=== PATIENT | female | born 1955 | race Caucasian/White ===

== ENCOUNTER 2021-12-12 18:15 | Inpatient (IN) | payer MEDICAID ==
--- NOTE | 2021-12-13 08:38 | Progress Note ---
Subjective Date of service: 12/13/21 Principal diagnosis: major depressive disorder Subjective Comment: This is a 66 year old female with history of depression who presents to the ER with suicidal ideation and overdose. EMS reports that she drank a small amount of bleach and took 3-4 pills of citalopram. The patient was seen today lying in bed. The patient reports she "got into it with my nephew." Patient denies previous psychiatric diagnoses. Patient is not engaging in interview and is unab le to provide information regarding what brought her here at this time. PAST PSYCHIATRIC HISTORY: PAST MEDICAL HISTORY: Family Psychiatric History: None reported or documented SOCIAL HISTORY REVIEW OF SYSTEMS MENTAL STATUS EXAMINATION Diagnoses: Major depressive disorder Treatment Plan Start sertraline 25 mg qd and trazodone 50 mg qhs Usual Wellness Buddhism/Preservation: - Start Trazodone 50 mg po QHS & 50 mg po QHS PRN between 10 PM & 2 AM for insomnia - Start Melatonin 5 mg po QHS to promote circadian rhythm The patient agreed on the treatment plan, understood the risk, benefit, alternative treatment, potential consequence of no treatment, and gave informed consent. Estimated days: 7 Post hospital care: primary care provider, psychiatric provider Case staffed with Dr. Ross Legal Status: Voluntary Reaction to Hospitalization: Accepting Medications and Allergies Allergies Allergy/AdvReac Type Severity Reaction Status Date / Time NSAIDS (Non-Steroidal Allergy Unknown Verified 12/12/21 22:07 Anti-Inflamma tramadol Allergy Unknown Verified 12/12/21 22:07 Home Medications Medication Instructions Recorded Confirmed Last Taken Type Acetaminophen 1 cap PO BID PRN 12/13/21 12/13/21 Unknown History Albuterol Mdi (or & Nicu Only) 2 puff IH QID PRN 12/13/21 12/13/21 Unknown History [ProAir HFA Inhaler] AtorvaSTATin [Lipitor] 20 mg PO QHS 12/13/21 12/13/21 Unknown History Citalopram [celeXA] 20 mg PO QDAY 12/13/21 12/13/21 Unknown History Loratadine [Allergy] 10 mg PO DAILY 12/13/21 12/13/21 Unknown History Omeprazole 40 mg PO QAM 12/13/21 12/13/21 Unknown History Potassium Chloride [K-Dur] 10 meq PO QDAY 12/13/21 12/13/21 Unknown History hydroCHLOROthiazide 12.5 mg PO DAILY 12/13/21 12/13/21 Unknown History [Hydrochlorothiazide] lisinopriL [Lisinopril] 20 mg PO DAILY 12/13/21 12/13/21 Unknown History Active Meds: Active Medications Trazodone HCl (Trazodone 50 Mg Tab) 50 mg PO QHS [facility] Results - Results Labs/Vitals: Last Vital Signs Temp 98.9 F 12/12/21 22:07 Pulse 71 12/12/21 22:07 Resp 17 12/12/21 22:07 BP 117/71 12/12/21 22:07 Pulse Ox 97 12/12/21 22:07
--- NOTE | 2021-12-13 09:04 | Consultation ---
History of Present Illness - Reason for Consult Consult date: 12/13/21 Medical consult /medical management Requesting physician: LOIS THOMAS - History of Present Illness 66-year-old female patient was admitted to [facility] psych unit for suicidal ideation and consuming a sip of bleach and 3 to 4 unknown tablets with intention to harm herself as suicidal attempt Patient has history of hypertension dyslipidemia, medical consult was requested for medical management. On examination patient is severely depressed, minimally communicative Sleeping in her room, easily awakens No new overnight events reported by the nursing When asked how she is doing patient response by saying ''well'' Past History Past Medical History: hypertension, hyperlipidemia, other (Bipolar, depression) Past Surgical History: No surgical history Social history: smoking, alcohol abuse, full code Family history: no significant family history Medications and Allergies Allergies Allergy/AdvReac Type Severity Reaction Status Date / Time NSAIDS (Non-Steroidal Allergy Unknown Verified 12/12/21 22:07 Anti-Inflamma tramadol Allergy Unknown Verified 12/12/21 22:07 Home Medications Medication Instructions Recorded Confirmed Last Taken Type Acetaminophen 1 cap PO BID PRN 12/13/21 12/13/21 Unknown History Albuterol Mdi (or & Nicu Only) 2 puff IH QID PRN 12/13/21 12/13/21 Unknown His tory [ProAir HFA Inhaler] AtorvaSTATin [Lipitor] 20 mg PO QHS 12/13/21 12/13/21 Unknown History Citalopram [celeXA] 20 mg PO QDAY 12/13/21 12/13/21 Unknown History Loratadine [Allergy] 10 mg PO DAILY 12/13/21 12/13/21 Unknown History Omeprazole 40 mg PO QAM 12/13/21 12/13/21 Unknown History Potassium Chloride [K-Dur] 10 meq PO QDAY 12/13/21 12/13/21 Unknown History hydroCHLOROthiazide 12.5 mg PO DAILY 12/13/21 12/13/21 Unknown History [Hydrochlorothiazide] lisinopriL [Lisinopril] 20 mg PO DAILY 12/13/21 12/13/21 Unknown History Active Meds: Active Medications Trazodone HCl (Trazodone 50 Mg Tab) 50 mg PO QHS [facility] Review of Systems Constitutional: weakness, no weight loss, no weight gain, no fever, no chills Ears, nose, mouth and throat: no nasal congestion, no nasal discharge Cardiovascular: no chest pain, no orthopnea, no palpitations Respiratory: no cough, no shortness of breath Gastrointestinal: no abdominal pain, no nausea, no vomiting Genitourinary Female: no pelvic pain, no flank pain, no dysuria Musculoskeletal: no myalgias, no arthritis Integumentary: no rash, no lesions Psychiatric: anxiety, depression Endocrine: no cold intolerance, no heat intolerance Hematologic/Lymphatic: no easy bruising, no easy bleeding Allergic/Immunologic: no urticaria, no allergic rhinitis Exam - Constitutional Vitals: Temp Pulse Resp BP Pulse Ox 98.9 F 71 17 117/71 97 12/12/21 22:07 12/12/21 22:07 12/12/21 22:07 12/12/21 22:07 12/12/21 22:07 General appearance: Present: no acute distress, obese, other (Minimally communicative, depressed) - EENT Eyes: Present: PERRL, EOM intact - Neck Neck: Present: supple, normal ROM - Respiratory Respiratory effort: normal Respiratory: bilateral: diminished, negative: rales, rhonchi, wheezing - Cardiovascular Rhythm: regular Heart Sounds: Present: S1 & S2 - Extremities Extremities: no ischemia, No edema - Abdominal General gastrointestinal: Present: soft, non-tender, non-distended, normal bowel sounds - Integumentary Integumentary: Present: clear, warm - Musculoskeletal Musculoskeletal: strength equal bilaterally - Psychiatric Psychiatric: appropriate mood/affect, cooperative - Neurologic Neurologic: CNII-XII intact, moves all extremities Results - Labs CBC & Chem 7: 12/13/21 07:37 12/13/21 07:37 Assessment and Plan -- Hypertension; Moderate control, resume home antihypertensive lisinopril As needed hydralazine, closely monitor -- Dyslipidemia; Resume lipid-lowering medication statin Low-cholesterol diet -- Major depression; Management per psychiatric team Denied suicidal thoughts or ideation today --Suicidal attempt; Intentional consumption of bleach And unknown medications Suicidal watch/1013 status --Leukopenia; Unknown etiology Patient does not have any immunosuppressive illnesses Monitor closely --Ongoing tobacco use; Smoking cessation counseling Advised nicotine patch as needed --Obesity; BMI 33.3 Dietary modification, exercise as tolerated and weight reduction When medically stable. --Full CODE STATUS Closely monitor the patient and adjust the management as needed Plan of care reviewed with the patient and her nurse. Thank you for this consultation We will follow the patient along with you Call us with questions
[2021-12-13] MEDS ORDERED: ALBUTEROL 8.5 GM MDI INHALATION IH PRN (09:59)
[2021-12-13] MEDS: LISINOPRIL 20 MG TAB PO SCH (11:00)
[2021-12-13] MEDS ORDERED: ALBUTEROL 2.5 MG/3 ML NEBU IH PRN (11:00)
[2021-12-13] MEDS: SERTRALINE 25 MG TAB PO SCH (11:11)
[2021-12-13 15:59] LABS: Basophils % (Auto) 1.6 % (0.0-1.8); Eosinophils % (Auto) 1.1 % (0.0-4.3); Hematocrit 34.8 % (30.3-42.9); Lymphocytes # (Auto) 1.2 K/mm3 (1.2-5.4); Lymphocytes % (Auto) 40.4 % (13.4-35.0); Mean Corpuscular HGB Conc 32 % (30-34); Mean Corpuscular Volume 96 fl (79-97); Monocytes # (Auto) 0.3 K/mm3 (0.0-0.8); Monocytes % (Auto) 8.7 % (0.0-7.3); Platelet Count 200 K/mm3 (140-440); Red Blood Count 3.63 M/mm3 (3.65-5.03); Red Cell Distribution Width 14.7 % (13.2-15.2)
[2021-12-13 16:23] LABS: Alanine Aminotransferase 15 units/L (7-56); Albumin 3.6 g/dL (3.9-5); BUN/Creatinine Ratio 15; Blood Urea Nitrogen 12 mg/dL (7-17); Calcium 8.6 mg/dL (8.4-10.2); Chol/HDL Ratio 3.05 %; HDL Cholesterol 39 mg/dL (40-59); Hemolysis Index 5; LDL Cholesterol,Direct 64 mg/dL (50-130)
[2021-12-13] MEDS: traZODone 50 MG TAB PO SCH (22:10)
--- NOTE | 2021-12-14 07:55 | Progress Note ---
Assessment and Plan Assessment and plan: 66-year-old female patient was admitted to [facility] psych unit for suicidal ideation and consuming a sip of bleach and 3 to 4 unknown tablets with intention to harm herself as suicidal attempt Patient has history of hypertension dyslipidemia, medical consult was requested for medical management -- Dyslipidemia; -- Major depression --Suicidal attempt; -- Bradycardia asymptomatic -- Leukopenia plan Cont supportive care monitor for symptoms associated with bradycardia Notify MD if any fever Continue Lisinopril other managment per psych team History Interval history: Patient seen and examined resting comfortably no new complaints this morning. Hospitalist Physical - Physical exam Narrative exam: VITAL SIGNS: Reviewed. GENERAL: The patient appears normally developed, Vital signs as documented. HEAD: No signs of head trauma. EYES: Pupils are equal. Extraocular motions intact. EARS: Hearing grossly intact. MOUTH: Oropharynx is normal. NECK: No adenopathy, no JVD. CHEST: Chest with clear breath sounds bilaterally. No wheezes, rales, or rhonchi. CARDIAC: Regular rate and rhythm. S1 and S2, without murmurs, gallops, or rubs. VASCULAR: No Edema. Peripheral pulses normal and equal in all extremities. ABDOMEN: Soft, non tender and non distended. No rebound or guarding, and no masses palpated. Bowel Sounds normal. MUSCULOSKELETAL: Good range of motion of all major joints. Extremities without clubbing, cyanosis or edema. NEUROLOGIC EXAM: Alert and oriented x 3 No focal sensory or strength deficits. Speech normal. Follows commands. PSYCHIATRIC: Mood normal. SKIN: detail exam as documented in skin assessment - Constitutional Vitals: Temp Pulse Resp BP Pulse Ox 98.5 F 72 18 147/74 99 12/13/21 22:00 12/13/21 22:00 12/13/21 22:00 12/13/21 22:00 12/13/21 22:00 Results - Labs CBC & Chem 7: 12/13/21 07:37 12/13/21 07:37 Labs: Laboratory Last Values WBC 2.9 K/mm3 (4.5-11.0) L 12/13/21 07:37 RBC 3.63 M/mm3 (3.65-5.03) L 12/13/21 07:37 Hgb 11.0 gm/dl (10.1-14.3) 12/13/21 07:37 Hct 34.8 % (30.3-42.9) 12/13/21 07:37 MCV 96 fl (79-97) 12/13/21 07:37 MCH 30 pg (28-32) 12/13/21 07:37 MCHC 32 % (30-34) 12/13/21 07:37 RDW 14.7 % (13.2-15.2) 12/13/21 07:37 Plt Count 200 K/mm3 (140-440) 12/13/21 07:37 Lymph % (Auto) 40.4 % (13.4-35.0) H 12/13/21 07:37 [place] % (Auto) 8.7 % (0.0-7.3) H 12/13/21 07:37 Eos % (Auto) 1.1 % (0.0-4.3) 12/13/21 07:37 Baso % (Auto) 1.6 % (0.0-1.8) 12/13/21 07:37 Lymph # (Auto) 1.2 K/mm3 (1.2-5.4) 12/13/21 07:37 [place] # (Auto) 0.3 K/mm3 (0.0-0.8) 12/13/21 07:37 Eos # (Auto) 0.0 K/mm3 (0.0-0.4) 12/13/21 07:37 Baso # (Auto) 0.0 K/mm3 (0.0-0.1) 12/13/21 07:37 Seg Neutrophils % 48.2 % (40.0-70.0) 12/13/21 07:37 Seg Neutrophils # 1.4 K/mm3 (1.8-7.7) L 12/13/21 07:37 Sodium 145 mmol/L (137-145) 12/13/21 07:37 Potassium 4.4 mmol/L (3.6-5.0) 12/13/21 07:37 Chloride 108.5 mmol/L (98-107) H 12/13/21 07:37 Carbon Dioxide 25 mmol/L (22-30) 12/13/21 07:37 Anion Gap 16 mmol/L 12/13/21 07:37 BUN 12 mg/dL (7-17) 12/13/21 07:37 Creatinine 0.8 mg/dL (0.6-1.2) 12/13/21 07:37 Estimated GFR > 60 ml/min 12/13/21 07:37 BUN/Creatinine Ratio 15 % 12/13/21 07:37 Glucose 77 mg/dL (65-100) 12/13/21 07:37 Hemoglobin A1c 5.2 % (4-6) 12/13/21 07:37 Calcium 8.6 mg/dL (8.4-10.2) 12/13/21 07:37 Total Bilirubin 0.70 mg/dL (0.1-1.2) 12/13/21 07:37 AST 21 units/L (5-40) 12/13/21 07:37 ALT 15 units/L (7-56) 12/13/21 07:37 Alkaline Phosphatase 88 units/L (35-129) 12/13/21 07:37 Total Protein 5.8 g/dL (6.3-8.2) L 12/13/21 07:37 Albumin 3.6 g/dL (3.9-5) L 12/13/21 07:37 Albumin/Globulin Ratio 1.6 % 12/13/21 07:37 Triglycerides 76 mg/dL (2-149) 12/13/21 07:37 Cholesterol 119 mg/dL (50-199) 12/13/21 07:37 LDL Cholesterol Direct 64 mg/dL (50-130) 12/13/21 07:37 HDL Cholesterol 39 mg/dL (40-59) L 12/13/21 07:37 Cholesterol/HDL Ratio 3.05 % 12/13/21 07:37 TSH 0.425 mlU/mL (0.270-4.200) 12/13/21 07:37 Demarco/IV: Voiding Method Toilet Active Medications - Current Medications Current Medications: Generic Name Dose Route Start Last Admin Trade Name Freq PRN Reason Stop Dose Admin Albuterol 2.5 mg 12/13/21 11:00 Albuterol 2.5 Mg/3 Ml Nebu IH Q4HR PRN Shortness Of Breath Lisinopril 20 mg 12/13/21 10:30 12/13/21 11:00 Lisinopril 20 Mg Tab PO Not Given DAILY [facility] Sertraline HCl 25 mg 12/13/21 10:30 12/13/21 11:11 Sertraline 25 Mg Tab PO 25 mg QDAY [facility] Administration Trazodone HCl 50 mg 12/13/21 22:00 12/13/21 22:10 Trazodone 50 Mg Tab PO 50 mg QHS [facility] Administration
--- NOTE | 2021-12-14 09:04 | Progress Note ---
Subjective Date of service: 12/14/21 Principal diagnosis: major depressive disorder Subjective Comment: 12/14:The patient was seen resting in bed. She is calm, alert and oriented to self. The patient is not engaging at this time. Per nurse " Pt received in the hallway observed tearful and sad. Reports she has been trying to get her daughter on phone w/o success. Courtesy Driver assisted with the phone call but no answer. Message left and pt given verbal support and assured we will try again later." REVIEW OF SYSTEMS MENTAL STATUS EXAMINATION Diagnoses: Major depressive disorder Treatment Plan Start sertraline 25 mg qd and trazodone 50 mg qhs Usual Wellness Episcopalian/Preservation: - Start Trazodone 50 mg po QHS & 50 mg po QHS PRN between 10 PM & 2 AM for inso mnia - Start Melatonin 5 mg po QHS to promote circadian rhythm The patient agreed on the treatment plan, understood the risk, benefit, alternative treatment, potential consequence of no treatment, and gave informed consent. Estimated days: 7 Post hospital care: primary care provider, psychiatric provider Case staffed with Dr. Ross Legal Status: Voluntary Reaction to Hospitalization: Accepting Medications and Allergies Medications and Allergies Allergies Allergy/AdvReac Type Severity Reaction Status Date / Time NSAIDS (Non-Steroidal Allergy Unknown Verified 12/12/21 22:07 Anti-Inflamma tramadol Allergy Unknown Verified 12/12/21 22:07 Home Medications Medication Instructions Recorded Confirmed Last Taken Type Acetaminophen 1 cap PO BID PRN 12/13/21 12/13/21 Unknown History Albuterol Mdi (or & Nicu Only) 2 puff IH QID PRN 12/13/21 12/13/21 Unknown History [ProAir HFA Inhaler] AtorvaSTATin [Lipitor] 20 mg PO QHS 12/13/21 12/13/21 Unknown History Citalopram [celeXA] 20 mg PO QDAY 12/13/21 12/13/21 Unknown History Loratadine [Allergy] 10 mg PO DAILY 12/13/21 12/13/21 Unknown History Omeprazole 40 mg PO QAM 12/13/21 12/13/21 Unknown History Potassium Chloride [K-Dur] 10 meq PO QDAY 12/13/21 12/13/21 Unknown History hydroCHLOROthiazide 12.5 mg PO DAILY 12/13/21 12/13/21 Unknown History [Hydrochlorothiazide] lisinopriL [Lisinopril] 20 mg PO DAILY 12/13/21 12/13/21 Unknown History Active Meds: Active Medications Albuterol (Albuterol 2.5 Mg/3 Ml Nebu) 2.5 mg IH Q4HR PRN PRN Reason: Shortness Of Breath Lisinopril (Lisinopril 20 Mg Tab) 20 mg PO DAILY [facility] Last Admin: 12/13/21 11:00 Dose: Not Given Sertraline HCl (Sertraline 25 Mg Tab) 25 mg PO QDAY [facility] Last Admin: 12/13/21 11:11 Dose: 25 mg Trazodone HCl (Trazodone 50 Mg Tab) 50 mg PO QHS [facility] Last Admin: 12/13/21 22:10 Dose: 50 mg Results - Results Labs/Vitals: Laboratory Last Values WBC 2.9 K/mm3 (4.5-11.0) L 12/13/21 07:37 RBC 3.63 M/mm3 (3.65-5.03) L 12/13/21 07:37 Hgb 11.0 gm/dl (10.1-14.3) 12/13/21 07:37 Hct 34.8 % (30.3-42.9) 12/13/21 07:37 MCV 96 fl (79-97) 12/13/21 07:37 MCH 30 pg (28-32) 12/13/21 07:37 MCHC 32 % (30-34) 12/13/21 07:37 RDW 14.7 % (13.2-15.2) 12/13/21 07:37 Plt Count 200 K/mm3 (140-440) 12/13/21 07:37 Lymph % (Auto) 40.4 % (13.4-35.0) H 12/13/21 07:37 [place] % (Auto) 8.7 % (0.0-7.3) H 12/13/21 07:37 Eos % (Auto) 1.1 % (0.0-4.3) 12/13/21 07:37 Baso % (Auto) 1.6 % (0.0-1.8) 12/13/21 07:37 Lymph # (Auto) 1.2 K/mm3 (1.2-5.4) 12/13/21 07:37 [place] # (Auto) 0.3 K/mm3 (0.0-0.8) 12/13/21 07:37 Eos # (Auto) 0.0 K/mm3 (0.0-0.4) 12/13/21 07:37 Baso # (Auto) 0.0 K/mm3 (0.0-0.1) 12/13/21 07:37 Seg Neutrophils % 48.2 % (40.0-70.0) 12/13/21 07:37 Seg Neutrophils # 1.4 K/mm3 (1.8-7.7) L 12/13/21 07:37 Sodium 145 mmol/L (137-145) 12/13/21 07:37 Potassium 4.4 mmol/L (3.6-5.0) 12/13/21 07:37 Chloride 108.5 mmol/L (98-107) H 12/13/21 07:37 Carbon Dioxide 25 mmol/L (22-30) 12/13/21 07:37 Anion Gap 16 mmol/L 12/13/21 07:37 BUN 12 mg/dL (7-17) 12/13/21 07:37 Creatinine 0.8 mg/dL (0.6-1.2) 12/13/21 07:37 Estimated GFR > 60 ml/min 12/13/21 07:37 BUN/Creatinine Ratio 15 % 12/13/21 07:37 Glucose 77 mg/dL (65-100) 12/13/21 07:37 Hemoglobin A1c 5.2 % (4-6) 12/13/21 07:37 Calcium 8.6 mg/dL (8.4-10.2) 12/13/21 07:37 Total Bilirubin 0.70 mg/dL (0.1-1.2) 12/13/21 07:37 AST 21 units/L (5-40) 12/13/21 07:37 ALT 15 units/L (7-56) 12/13/21 07:37 Alkaline Phosphatase 88 units/L (35-129) 12/13/21 07:37 Total Protein 5.8 g/dL (6.3-8.2) L 12/13/21 07:37 Albumin 3.6 g/dL (3.9-5) L 12/13/21 07:37 Albumin/Globulin Ratio 1.6 % 12/13/21 07:37 Triglycerides 76 mg/dL (2-149) 12/13/21 07:37 Cholesterol 119 mg/dL (50-199) 12/13/21 07:37 LDL Cholesterol Direct 64 mg/dL (50-130) 12/13/21 07:37 HDL Cholesterol 39 mg/dL (40-59) L 12/13/21 07:37 Cholesterol/HDL Ratio 3.05 % 12/13/21 07:37 TSH 0.425 mlU/mL (0.270-4.200) 12/13/21 07:37 Last Vital Signs Temp 98.5 F 12/13/21 22:00 Pulse 72 12/13/21 22:00 Resp 18 12/13/21 22:00 BP 147/74 12/13/21 22:00 Pulse Ox 99 12/13/21 22:00
[2021-12-14] MEDS: LISINOPRIL 20 MG TAB PO SCH (10:06)
[2021-12-14] MEDS: SERTRALINE 25 MG TAB PO SCH (10:07)
[2021-12-14] MEDS: ACETAMINOPHEN 325 MG TAB PO PRN (18:48)
[2021-12-14] MEDS: traZODone 50 MG TAB PO SCH (21:20)
--- NOTE | 2021-12-15 09:00 | Progress Note ---
Subjective Date of service: 12/15/21 Principal diagnosis: major depressive disorder Subjective Comment: 12/15:The patient was seen in her room today. She reports that " I tried to kill myself because I didn't have any where to stay." She continues to endorse suicidal ideation and auditory hallucination " voices telling me to kill myself." She also reports having tactile hallucinations " bugs crawling on my face." 12/14:The patient was seen resting in bed. She is calm, alert and oriented to self. The patient is not engaging at this time. Per nurse " Pt received in the hallway observed tearful and sad. Reports she has been trying to get her daughter on phone w/o success. Take Away Man assisted with the phone call but no answer. Message left and pt given verbal support and assured we will try again later." REVIEW OF SYSTEMS Constitutional: Negative for weight loss ENT: Negative for stridor Respiratory: Negative for cough or hemoptysis All other systems reviewed and are negative MENTAL STATUS EXAMINATION General Appearance and Behavior: Age appropriate, wearing appropriate clothes, cooperative, polite with questioning, good eye contact Cooperation: cooperative Psychomotor Behavior: Psychomotor normal Mood: Calm Affect and affective range: congruent with stated affect Thought Process: Goal directed Thought Content: suicidal Speech: Normal volume, Regular rate and rhythm Suicidal Ideation: Yes Homicidal Ideation: Denies Hallucination: Auditory. tactile Delusions: Denies Impulse Control: Limited Insight and Judgment: Limited Memory: Intact Attention:attentive Orientation: Alert and oriented Diagnoses: Major depressive disorder Treatment Plan Start sertraline 25 mg qd and trazodone 50 mg qhs Usual Wellness Sikhism/Preservation: - Start Trazodone 50 mg po QHS & 50 mg po QHS PRN between 10 PM & 2 AM for insomnia - Start Melatonin 5 mg po QHS to promote circadian rhythm The patient agreed on the treatment plan, understood the risk, benefit, alternative treatment, potential consequence of no treatment, and gave informed consent. Estimated days: 7 Post hospital care: primary care provider, psychiatric provider Case staffed with Dr. Ross Legal Status: Voluntary Reaction to Hospitalization: Accepting Medications and Allergies Medications and Allergies Allergies Allergy/AdvReac Type Severity Reaction Status Date / Time NSAIDS (Non-Steroidal Allergy Unknown Verified 12/12/21 22:07 Anti-Inflamma tramadol Allergy Unknown Verified 12/12/21 22:07 Home Medications Medication Instructions Recorded Confirmed Last Taken Type Acetaminophen 1 cap PO BID PRN 12/13/21 12/13/21 Unknown History Albuterol Mdi (or & Nicu Only) 2 puff IH QID PRN 12/13/21 12/13/21 Unknown History [ProAir HFA Inhaler] AtorvaSTATin [Lipitor] 20 mg PO QHS 12/13/21 12/13/21 Unknown History Citalopram [celeXA] 20 mg PO QDAY 12/13/21 12/13/21 Unknown History Loratadine [Allergy] 10 mg PO DAILY 12/13/21 12/13/21 Unknown History Omeprazole 40 mg PO QAM 12/13/21 12/13/21 Unknown History Potassium Chloride [K-Dur] 10 meq PO QDAY 12/13/21 12/13/21 Unknown History hydroCHLOROthiazide 12.5 mg PO DAILY 12/13/21 12/13/21 Unknown History [Hydrochlorothiazide] lisinopriL [Lisinopril] 20 mg PO DAILY 12/13/21 12/13/21 Unknown History Active Meds: Active Medications Acetaminophen (Acetaminophen 325 Mg Tab) 650 mg PO Q6H PRN PRN Reason: Pain, Mild (1-3) Last Admin: 12/14/21 18:48 Dose: 650 mg Albuterol (Albuterol 2.5 Mg/3 Ml Nebu) 2.5 mg IH Q4HR PRN PRN Reason: Shortness Of Breath Lisinopril (Lisinopril 20 Mg Tab) 20 mg PO DAILY [facility] Last Admin: 12/14/21 10:06 Dose: Not Given Sertraline HCl (Sertraline 25 Mg Tab) 25 mg PO QDAY [facility] Last Admin: 12/14/21 10:07 Dose: 25 mg Trazodone HCl (Trazodone 50 Mg Tab) 50 mg PO QHS [facility] Last Admin: 12/14/21 21:20 Dose: 50 mg Results - Results Labs/Vitals: Laboratory Last Values WBC 2.9 K/mm3 (4.5-11.0) L 12/13/21 07:37 RBC 3.63 M/mm3 (3.65-5.03) L 12/13/21 07:37 Hgb 11.0 gm/dl (10.1-14.3) 12/13/21 07:37 Hct 34.8 % (30.3-42.9) 12/13/21 07:37 MCV 96 fl (79-97) 12/13/21 07:37 MCH 30 pg (28-32) 12/13/21 07:37 MCHC 32 % (30-34) 12/13/21 07:37 RDW 14.7 % (13.2-15.2) 12/13/21 07:37 Plt Count 200 K/mm3 (140-440) 12/13/21 07:37 Lymph % (Auto) 40.4 % (13.4-35.0) H 12/13/21 07:37 [place] % (Auto) 8.7 % (0.0-7.3) H 12/13/21 07:37 Eos % (Auto) 1.1 % (0.0-4.3) 12/13/21 07:37 Baso % (Auto) 1.6 % (0.0-1.8) 12/13/21 07:37 Lymph # (Auto) 1.2 K/mm3 (1.2-5.4) 12/13/21 07:37 [place] # (Auto) 0.3 K/mm3 (0.0-0.8) 12/13/21 07:37 Eos # (Auto) 0.0 K/mm3 (0.0-0.4) 12/13/21 07:37 Baso # (Auto) 0.0 K/mm3 (0.0-0.1) 12/13/21 07:37 Seg Neutrophils % 48.2 % (40.0-70.0) 12/13/21 07:37 Seg Neutrophils # 1.4 K/mm3 (1.8-7.7) L 12/13/21 07:37 Sodium 145 mmol/L (137-145) 12/13/21 07:37 Potassium 4.4 mmol/L (3.6-5.0) 12/13/21 07:37 Chloride 108.5 mmol/L (98-107) H 12/13/21 07:37 Carbon Dioxide 25 mmol/L (22-30) 12/13/21 07:37 Anion Gap 16 mmol/L 12/13/21 07:37 BUN 12 mg/dL (7-17) 12/13/21 07:37 Creatinine 0.8 mg/dL (0.6-1.2) 12/13/21 07:37 Estimated GFR > 60 ml/min 12/13/21 07:37 BUN/Creatinine Ratio 15 % 12/13/21 07:37 Glucose 77 mg/dL (65-100) 12/13/21 07:37 Hemoglobin A1c 5.2 % (4-6) 12/13/21 07:37 Calcium 8.6 mg/dL (8.4-10.2) 12/13/21 07:37 Total Bilirubin 0.70 mg/dL (0.1-1.2) 12/13/21 07:37 AST 21 units/L (5-40) 12/13/21 07:37 ALT 15 units/L (7-56) 12/13/21 07:37 Alkaline Phosphatase 88 units/L (35-129) 12/13/21 07:37 Total Protein 5.8 g/dL (6.3-8.2) L 12/13/21 07:37 Albumin 3.6 g/dL (3.9-5) L 12/13/21 07:37 Albumin/Globulin Ratio 1.6 % 12/13/21 07:37 Triglycerides 76 mg/dL (2-149) 12/13/21 07:37 Cholesterol 119 mg/dL (50-199) 12/13/21 07:37 LDL Cholesterol Direct 64 mg/dL (50-130) 12/13/21 07:37 HDL Cholesterol 39 mg/dL (40-59) L 12/13/21 07:37 Cholesterol/HDL Ratio 3.05 % 12/13/21 07:37 TSH 0.425 mlU/mL (0.270-4.200) 12/13/21 07:37 Last Vital Signs Temp 98.2 F 12/14/21 22:00 Pulse 77 12/14/21 22:00 Resp 18 12/14/21 22:00 BP 125/75 12/14/21 22:00 Pulse Ox 96 12/14/21 22:00
[2021-12-15] MEDS: LISINOPRIL 20 MG TAB PO SCH (09:18)
[2021-12-15] MEDS: SERTRALINE 25 MG TAB PO SCH (09:18)
[2021-12-15] MEDS: ACETAMINOPHEN 325 MG TAB PO PRN (10:49)
--- NOTE | 2021-12-15 11:08 | Progress Note ---
Assessment and Plan Assessment and plan: 66-year-old female patient was admitted to [facility] psych unit for suicidal ideation and consuming a sip of bleach and 3 to 4 unknown tablets with intention to harm herself as suicidal attempt Patient has history of hypertension dyslipidemia, medical consult was requested for medical management. -- Dyslipidemia; -- Major depression -- Suicidal attempt; -- Bradycardia asymptomatic -- Leukopenia plan Cont supportive care, No new complaints monitor for symptoms associated with Bradycardia Notify MD if any fever Continue Lisinopril other managment per psych team History Interval history: Patient seen and examined resting comfortably no new complaints this morning. Hospitalist Physical - Physical exam Narrative exam: VITAL SIGNS: Reviewed. GENERAL: The patient appears normally developed, Vital signs as documented. HEAD: No signs of head trauma. EYES: Pupils are equal. Extraocular motions intact. EARS: Hearing grossly intact. MOUTH: Oropharynx is normal. NECK: No adenopathy, no JVD. CHEST: Chest with clear breath sounds bilaterally. No wheezes, rales, or rhonchi. CARDIAC: Regular rate and rhythm. S1 and S2, without murmurs, gallops, or rubs. VASCULAR: No Edema. Peripheral pulses normal and equal in all extremities. ABDOMEN: Soft, non tender and non distended. No rebound or guarding, and no masses palpated. Bowel Sounds normal. MUSCULOSKELETAL: Good range of motion of all major joints. Extremities without clubbing, cyanosis or edema. NEUROLOGIC EXAM: Alert and oriented x 3 No focal sensory or strength deficits. Speech normal. Follows commands. PSYCHIATRIC: Mood normal. SKIN: detail exam as documented in skin assessment - Constitutional Vitals: Temp Pulse Resp BP Pulse Ox 98.2 F 68 18 121/70 96 12/14/21 22:00 12/15/21 09:18 12/14/21 22:00 12/15/21 09:18 12/14/21 22:00 General appearance: Present: no acute distress, obese, other (Minimally communicative, depressed) Results - Labs CBC & Chem 7: 12/13/21 07:37 12/13/21 07:37 Labs: Laboratory Last Values WBC 2.9 K/mm3 (4.5-11.0) L 12/13/21 07:37 RBC 3.63 M/mm3 (3.65-5.03) L 12/13/21 07:37 Hgb 11.0 gm/dl (10.1-14.3) 12/13/21 07:37 Hct 34.8 % (30.3-42.9) 12/13/21 07:37 MCV 96 fl (79-97) 12/13/21 07:37 MCH 30 pg (28-32) 12/13/21 07:37 MCHC 32 % (30-34) 12/13/21 07:37 RDW 14.7 % (13.2-15.2) 12/13/21 07:37 Plt Count 200 K/mm3 (140-440) 12/13/21 07:37 Lymph % (Auto) 40.4 % (13.4-35.0) H 12/13/21 07:37 [place] % (Auto) 8.7 % (0.0-7.3) H 12/13/21 07:37 Eos % (Auto) 1.1 % (0.0-4.3) 12/13/21 07:37 Baso % (Auto) 1.6 % (0.0-1.8) 12/13/21 07:37 Lymph # (Auto) 1.2 K/mm3 (1.2-5.4) 12/13/21 07:37 [place] # (Auto) 0.3 K/mm3 (0.0-0.8) 12/13/21 07:37 Eos # (Auto) 0.0 K/mm3 (0.0-0.4) 12/13/21 07:37 Baso # (Auto) 0.0 K/mm3 (0.0-0.1) 12/13/21 07:37 Seg Neutrophils % 48.2 % (40.0-70.0) 12/13/21 07:37 Seg Neutrophils # 1.4 K/mm3 (1.8-7.7) L 12/13/21 07:37 Sodium 145 mmol/L (137-145) 12/13/21 07:37 Potassium 4.4 mmol/L (3.6-5.0) 12/13/21 07:37 Chloride 108.5 mmol/L (98-107) H 12/13/21 07:37 Carbon Dioxide 25 mmol/L (22-30) 12/13/21 07:37 Anion Gap 16 mmol/L 12/13/21 07:37 BUN 12 mg/dL (7-17) 12/13/21 07:37 Creatinine 0.8 mg/dL (0.6-1.2) 12/13/21 07:37 Estimated GFR > 60 ml/min 12/13/21 07:37 BUN/Creatinine Ratio 15 % 12/13/21 07:37 Glucose 77 mg/dL (65-100) 12/13/21 07:37 Hemoglobin A1c 5.2 % (4-6) 12/13/21 07:37 Calcium 8.6 mg/dL (8.4-10.2) 12/13/21 07:37 Total Bilirubin 0.70 mg/dL (0.1-1.2) 12/13/21 07:37 AST 21 units/L (5-40) 12/13/21 07:37 ALT 15 units/L (7-56) 12/13/21 07:37 Alkaline Phosphatase 88 units/L (35-129) 12/13/21 07:37 Total Protein 5.8 g/dL (6.3-8.2) L 12/13/21 07:37 Albumin 3.6 g/dL (3.9-5) L 12/13/21 07:37 Albumin/Globulin Ratio 1.6 % 12/13/21 07:37 Triglycerides 76 mg/dL (2-149) 12/13/21 07:37 Cholesterol 119 mg/dL (50-199) 12/13/21 07:37 LDL Cholesterol Direct 64 mg/dL (50-130) 12/13/21 07:37 HDL Cholesterol 39 mg/dL (40-59) L 12/13/21 07:37 Cholesterol/HDL Ratio 3.05 % 12/13/21 07:37 TSH 0.425 mlU/mL (0.270-4.200) 12/13/21 07:37 Demarco/IV: Voiding Method Toilet Active Medications - Current Medications Current Medications: Generic Name Dose Route Start Last Admin Trade Name Freq PRN Reason Stop Dose Admin Acetaminophen 650 mg 12/14/21 18:22 12/15/21 10:49 Acetaminophen 325 Mg Tab PO 650 mg Q6H PRN Administration Pain, Mild (1-3) Albuterol 2.5 mg 12/13/21 11:00 Albuterol 2.5 Mg/3 Ml Nebu IH Q4HR PRN Shortness Of Breath Lisinopril 20 mg 12/13/21 10:30 12/15/21 09:18 Lisinopril 20 Mg Tab PO 20 mg DAILY CHENCHO Administration Sertraline HCl 25 mg 12/13/21 10:30 12/15/21 09:18 Sertraline 25 Mg Tab PO 25 mg QDAY CHENCHO Administration Trazodone HCl 50 mg 12/13/21 22:00 12/14/21 21:20 Trazodone 50 Mg Tab PO 50 mg QHS CHENCHO Administration
[2021-12-15] MEDS: traZODone 50 MG TAB PO SCH (21:07)
[2021-12-16] MEDS: SERTRALINE 25 MG TAB PO SCH (09:38)
[2021-12-16] MEDS: LISINOPRIL 20 MG TAB PO SCH (09:38)
--- NOTE | 2021-12-16 12:04 | Progress Note ---
Subjective Date of service: 12/16/21 Principal diagnosis: major depressive disorder Subjective Comment: The patient was seen today. She says she is tired. She says Trazodone makes her sick and she cannot take it. The patient still endorses SI with no plan. She says "I think I need to stay here a few more days." She denies hallucinations of any kind. REVIEW OF SYSTEMS Constitutional: Negative for weight loss ENT: Negative for stridor Respiratory: Negative for cough or hemoptysis All other systems reviewed and are negative MENTAL STATUS EXAMINATION General Appearance and Behavior: Age appropriate, wearing appropriate clothes, cooperative, polite with questioning, good eye contact Cooperation: cooperative Psychomotor Behavior: Psychomotor normal Mood: Calm Affect and affective range: congruent with stated affect Thought Process: Goal directed Thought Content: suicidal Speech: Normal volume, Regular rate and rhythm Suicidal Ideation: Yes Homicidal Ideation: Denies Hallucination: Auditory. tactile Delusions: Denies Impulse Control: Limited Insight and Judgment: Limited Memory: Intact Attention:attentive Orientation: Alert and oriented Diagnoses: Major depressive disorder Treatment Plan Patient admitted for inpatient psychiatric evaluation, medication adjustment and close monitoring The patient's behavior, mood, sleep and appetite will be closely monitored. Patient enrolled in individual and group therapeutic sessions and encouraged to attend. Patient provided with a safe and structured environment. Patient's physical health needs will be addressed by the Hospitalist. Hospitalist Consulted Labs including CBC, CMP, Lipid profile and Hemoglobin A1C levels ordered for baseline reference Social Assessment will be completed and the Principal System Software Engineer will work with p atient and family to ensure a suitable and safe disposition Medication adjustment will be made as clinically indicated D/c Trazodone Usual Wellness Latter-Day/Preservation The patient agreed on the treatment plan, understood the risk, benefit, alternative treatment, potential consequence of no treatment, and gave informed consent. Estimated days: 7 Post hospital care: primary care provider, psychiatric provider Case staffed with Dr. Ross Medications and Allergies Allergies Allergy/AdvReac Type Severity Reaction Status Date / Time NSAIDS (Non-Steroidal Allergy Unknown Verified 12/12/21 22:07 Anti-Inflamma tramadol Allergy Unknown Verified 12/12/21 22:07 Home Medications Medication Instructions Recorded Confirmed Last Taken Type Acetaminophen 1 cap PO BID PRN 12/13/21 12/13/21 Unknown History Albuterol Mdi (or & Nicu Only) 2 puff IH QID PRN 12/13/21 12/13/21 Unknown History [ProAir HFA Inhaler] AtorvaSTATin [Lipitor] 20 mg PO QHS 12/13/21 12/13/21 Unknown History Citalopram [celeXA] 20 mg PO QDAY 12/13/21 12/13/21 Unknown History Loratadine [Allergy] 10 mg PO DAILY 12/13/21 12/13/21 Unknown History Omeprazole 40 mg PO QAM 12/13/21 12/13/21 Unknown History Potassium Chloride [K-Dur] 10 meq PO QDAY 12/13/21 12/13/21 Unknown History hydroCHLOROthiazide 12.5 mg PO DAILY 12/13/21 12/13/21 Unknown History [Hydrochlorothiazide] lisinopriL [Lisinopril] 20 mg PO DAILY 12/13/21 12/13/21 Unknown History Active Meds: Active Medications Acetaminophen (Acetaminophen 325 Mg Tab) 650 mg PO Q6H PRN PRN Reason: Pain, Mild (1-3) Last Admin: 12/15/21 10:49 Dose: 650 mg Albuterol (Albuterol 2.5 Mg/3 Ml Nebu) 2.5 mg IH Q4HR PRN PRN Reason: Shortness Of Breath Lisinopril (Lisinopril 20 Mg Tab) 20 mg PO DAILY [facility] Last Admin: 12/16/21 09:38 Dose: 20 mg Sertraline HCl (Sertraline 25 Mg Tab) 25 mg PO QDAY [facility] Last Admin: 12/16/21 09:38 Dose: 25 mg Trazodone HCl (Trazodone 50 Mg Tab) 50 mg PO QHS [facility] Last Admin: 12/15/21 21:07 Dose: 50 mg Results - Results Labs/Vitals: Laboratory Last Values WBC 2.9 K/mm3 (4.5-11.0) L 12/13/21 07:37 RBC 3.63 M/mm3 (3.65-5.03) L 12/13/21 07:37 Hgb 11.0 gm/dl (10.1-14.3) 12/13/21 07:37 Hct 34.8 % (30.3-42.9) 12/13/21 07:37 MCV 96 fl (79-97) 12/13/21 07:37 MCH 30 pg (28-32) 12/13/21 07:37 MCHC 32 % (30-34) 12/13/21 07:37 RDW 14.7 % (13.2-15.2) 12/13/21 07:37 Plt Count 200 K/mm3 (140-440) 12/13/21 07:37 Lymph % (Auto) 40.4 % (13.4-35.0) H 12/13/21 07:37 [place] % (Auto) 8.7 % (0.0-7.3) H 12/13/21 07:37 Eos % (Auto) 1.1 % (0.0-4.3) 12/13/21 07:37 Baso % (Auto) 1.6 % (0.0-1.8) 12/13/21 07:37 Lymph # (Auto) 1.2 K/mm3 (1.2-5.4) 12/13/21 07:37 [place] # (Auto) 0.3 K/mm3 (0.0-0.8) 12/13/21 07:37 Eos # (Auto) 0.0 K/mm3 (0.0-0.4) 12/13/21 07:37 Baso # (Auto) 0.0 K/mm3 (0.0-0.1) 12/13/21 07:37 Seg Neutrophils % 48.2 % (40.0-70.0) 12/13/21 07:37 Seg Neutrophils # 1.4 K/mm3 (1.8-7.7) L 12/13/21 07:37 Sodium 145 mmol/L (137-145) 12/13/21 07:37 Potassium 4.4 mmol/L (3.6-5.0) 12/13/21 07:37 Chloride 108.5 mmol/L (98-107) H 12/13/21 07:37 Carbon Dioxide 25 mmol/L (22-30) 12/13/21 07:37 Anion Gap 16 mmol/L 12/13/21 07:37 BUN 12 mg/dL (7-17) 12/13/21 07:37 Creatinine 0.8 mg/dL (0.6-1.2) 12/13/21 07:37 Estimated GFR > 60 ml/min 12/13/21 07:37 BUN/Creatinine Ratio 15 % 12/13/21 07:37 Glucose 77 mg/dL (65-100) 12/13/21 07:37 Hemoglobin A1c 5.2 % (4-6) 12/13/21 07:37 Calcium 8.6 mg/dL (8.4-10.2) 12/13/21 07:37 Total Bilirubin 0.70 mg/dL (0.1-1.2) 12/13/21 07:37 AST 21 units/L (5-40) 12/13/21 07:37 ALT 15 units/L (7-56) 12/13/21 07:37 Alkaline Phosphatase 88 units/L (35-129) 12/13/21 07:37 Total Protein 5.8 g/dL (6.3-8.2) L 12/13/21 07:37 Albumin 3.6 g/dL (3.9-5) L 12/13/21 07:37 Albumin/Globulin Ratio 1.6 % 12/13/21 07:37 Triglycerides 76 mg/dL (2-149) 12/13/21 07:37 Cholesterol 119 mg/dL (50-199) 12/13/21 07:37 LDL Cholesterol Direct 64 mg/dL (50-130) 12/13/21 07:37 HDL Cholesterol 39 mg/dL (40-59) L 12/13/21 07:37 Cholesterol/HDL Ratio 3.05 % 12/13/21 07:37 TSH 0.425 mlU/mL (0.270-4.200) 12/13/21 07:37 Last Vital Signs Temp 98.0 F 12/16/21 06:15 Pulse 61 12/16/21 09:38 Resp 18 12/16/21 06:15 BP 145/61 12/16/21 09:38 Pulse Ox 98 12/16/21 06:15
--- NOTE | 2021-12-16 16:43 | Progress Note ---
Assessment and Plan Assessment and plan: 66-year-old female patient was admitted to [facility] psych unit for suicidal ideation and consuming a sip of bleach and 3 to 4 unknown tablets with intention to harm herself as suicidal attempt Patient has history of hypertension dyslipidemia, medical consult was requested for medical management. Patient feels better; Assessment and plan -- Dyslipidemia; -- Major depression -- Suicidal attempt; -- Bradycardia asymptomatic -- Leukopenia plan Cont supportive care, No new complaints monitor for symptoms associated with Bradycardia Notify MD if any fever Continue Lisinopril other managment per psych team We will closely monitor the patient and adjust management as needed Follow the patient along with you Thank you for this consultation History Interval history: I have seen and examined the patient in the day room Patient's chart and medications reviewed No new events reported by the nursing Patient states that she feels well and anxious to go home Denies suicidal thoughts or ideation Vital signs noted Hospitalist Physical - Constitutional Vitals: Temp Pulse Resp BP Pulse Ox 98.0 F 61 18 145/61 98 12/16/21 06:15 12/16/21 09:38 12/16/21 06:15 12/16/21 09:38 12/16/21 06:15 General appearance: Present: no acute distress, obese, other (Responding appropriately) - EENT Eyes: Present: PERRL, EOM intact - Neck Neck: Present: supple, normal ROM - Respiratory Respiratory effort: normal Respiratory: bilateral: diminished, negative: rales, rhonchi, wheezing - Cardiovascular Rhythm: regular Heart Sounds: Present: S1 & S2 - Extremities Extremities: no ischemia, No edema - Abdominal General gastrointestinal: soft, non-tender, non-distended, normal bowel sounds - Integumentary Integumentary: Present: clear, warm - Psychiatric Psychiatric: appropriate mood/affect, cooperative - Neurologic Neurologic: moves all extremities Results - Labs CBC & Chem 7: 12/13/21 07:37 12/13/21 07:37 Labs: Laboratory Last Values WBC 2.9 K/mm3 (4.5-11.0) L 12/13/21 07:37 RBC 3.63 M/mm3 (3.65-5.03) L 12/13/21 07:37 Hgb 11.0 gm/dl (10.1-14.3) 12/13/21 07:37 Hct 34.8 % (30.3-42.9) 12/13/21 07:37 MCV 96 fl (79-97) 12/13/21 07:37 MCH 30 pg (28-32) 12/13/21 07:37 MCHC 32 % (30-34) 12/13/21 07:37 RDW 14.7 % (13.2-15.2) 12/13/21 07:37 Plt Count 200 K/mm3 (140-440) 12/13/21 07:37 Lymph % (Auto) 40.4 % (13.4-35.0) H 12/13/21 07:37 [place] % (Auto) 8.7 % (0.0-7.3) H 12/13/21 07:37 Eos % (Auto) 1.1 % (0.0-4.3) 12/13/21 07:37 Baso % (Auto) 1.6 % (0.0-1.8) 12/13/21 07:37 Lymph # (Auto) 1.2 K/mm3 (1.2-5.4) 12/13/21 07:37 [place] # (Auto) 0.3 K/mm3 (0.0-0.8) 12/13/21 07:37 Eos # (Auto) 0.0 K/mm3 (0.0-0.4) 12/13/21 07:37 Baso # (Auto) 0.0 K/mm3 (0.0-0.1) 12/13/21 07:37 Seg Neutrophils % 48.2 % (40.0-70.0) 12/13/21 07:37 Seg Neutrophils # 1.4 K/mm3 (1.8-7.7) L 12/13/21 07:37 Sodium 145 mmol/L (137-145) 12/13/21 07:37 Potassium 4.4 mmol/L (3.6-5.0) 12/13/21 07:37 Chloride 108.5 mmol/L (98-107) H 12/13/21 07:37 Carbon Dioxide 25 mmol/L (22-30) 12/13/21 07:37 Anion Gap 16 mmol/L 12/13/21 07:37 BUN 12 mg/dL (7-17) 12/13/21 07:37 Creatinine 0.8 mg/dL (0.6-1.2) 12/13/21 07:37 Estimated GFR > 60 ml/min 12/13/21 07:37 BUN/Creatinine Ratio 15 % 12/13/21 07:37 Glucose 77 mg/dL (65-100) 12/13/21 07:37 Hemoglobin A1c 5.2 % (4-6) 12/13/21 07:37 Calcium 8.6 mg/dL (8.4-10.2) 12/13/21 07:37 Total Bilirubin 0.70 mg/dL (0.1-1.2) 12/13/21 07:37 AST 21 units/L (5-40) 12/13/21 07:37 ALT 15 units/L (7-56) 12/13/21 07:37 Alkaline Phosphatase 88 units/L (35-129) 12/13/21 07:37 Total Protein 5.8 g/dL (6.3-8.2) L 12/13/21 07:37 Albumin 3.6 g/dL (3.9-5) L 12/13/21 07:37 Albumin/Globulin Ratio 1.6 % 12/13/21 07:37 Triglycerides 76 mg/dL (2-149) 12/13/21 07:37 Cholesterol 119 mg/dL (50-199) 12/13/21 07:37 LDL Cholesterol Direct 64 mg/dL (50-130) 12/13/21 07:37 HDL Cholesterol 39 mg/dL (40-59) L 12/13/21 07:37 Cholesterol/HDL Ratio 3.05 % 12/13/21 07:37 TSH 0.425 mlU/mL (0.270-4.200) 12/13/21 07:37 Demarco/IV: Voiding Method Toilet Active Medications - Current Medications Current Medications: Generic Name Dose Route Start Last Admin Trade Name Freq PRN Reason Stop Dose Admin Acetaminophen 650 mg 12/14/21 18:22 12/15/21 10:49 Acetaminophen 325 Mg Tab PO 650 mg Q6H PRN Administration Pain, Mild (1-3) Albuterol 2.5 mg 12/13/21 11:00 Albuterol 2.5 Mg/3 Ml Nebu IH Q4HR PRN Shortness Of Breath Lisinopril 20 mg 12/13/21 10:30 12/16/21 09:38 Lisinopril 20 Mg Tab PO 20 mg DAILY CHENCHO Administration Sertraline HCl 25 mg 12/13/21 10:30 12/16/21 09:38 Sertraline 25 Mg Tab PO 25 mg QDAY CHENCHO Administration
[2021-12-16] MEDS ORDERED: MELATONIN 5 MG TAB PO PRN (21:39)
[2021-12-17 04:30] VITALS: BP 152/72
--- NOTE | 2021-12-17 08:19 | Discharge Summary ---
Providers - Providers Date of Admission: 12/13/21 00:40 Date of discharge: 12/17/21 Attending physician: LOIS THOMAS MD 12/12/21 22:07 Consult to Physician [CONS] Routine Comment: Consulting Provider: BRIANDA LEIJA Physician Instructions: Please manage problems as per H&P Reason For Exam: New admissin Primary care physician: CLINICAL PROJECT LEADER Hospitalization Reason for admission: depression Admitting Diagnosis: F33.9 - MAJOR DEPRESSIVE DISORDER, RECURRENT, UNSPECIFIED Condition: Stable Hospital course: The patient was provided inpatient psychiatric treatment with safe and supportive care, medication adjustment, adverse effect monitoring, medical evaluations, medical treatments, assessment and psycho-education. The patient's mood, cognition, behavior, moral support are improved and stabilized. St the time of discharge, the patient had no endangering behavior and no debilitating adverse effects. The patient agreed on potential consequences of no treatment and gave informed consent. 12/17 The patient was seen today. She is lying in bed awake. She is calm and cooperative. She says she didn't sleep well last night. The patient says she still feels a little depressed, but reports feeling better. She denies SI/HI or hallucinations of any kind. Disposition: 01 HOME / SELF CARE / HOMELESS Time spent for discharge: 35 Allergies/Adverse Reactions: Allergies NSAIDS (Non-Steroidal Anti-Inflamma Allergy (Verified 12/12/21 22:07) Unknown tramadol Allergy (Verified 12/12/21 22:07) Unknown Vital Signs: Last Vital Signs Temp 95.9 F L 12/17/21 04:28 Pulse 62 12/17/21 04:28 Resp 16 12/17/21 04:28 BP 152/72 12/17/21 04:28 Pulse Ox 99 12/17/21 04:28 Last Lab: Laboratory Last Values WBC 2.9 K/mm3 (4.5-11.0) L 12/13/21 07:37 RBC 3.63 M/mm3 (3.65-5.03) L 12/13/21 07:37 Hgb 11.0 gm/dl (10.1-14.3) 12/13/21 07:37 Hct 34.8 % (30.3-42.9) 12/13/21 07:37 MCV 96 fl (79-97) 12/13/21 07:37 MCH 30 pg (28-32) 12/13/21 07:37 MCHC 32 % (30-34) 12/13/21 07:37 RDW 14.7 % (13.2-15.2) 12/13/21 07:37 Plt Count 200 K/mm3 (140-440) 12/13/21 07:37 Lymph % (Auto) 40.4 % (13.4-35.0) H 12/13/21 07:37 [place] % (Auto) 8.7 % (0.0-7.3) H 12/13/21 07:37 Eos % (Auto) 1.1 % (0.0-4.3) 12/13/21 07:37 Baso % (Auto) 1.6 % (0.0-1.8) 12/13/21 07:37 Lymph # (Auto) 1.2 K/mm3 (1.2-5.4) 12/13/21 07:37 [place] # (Auto) 0.3 K/mm3 (0.0-0.8) 12/13/21 07:37 Eos # (Auto) 0.0 K/mm3 (0.0-0.4) 12/13/21 07:37 Baso # (Auto) 0.0 K/mm3 (0.0-0.1) 12/13/21 07:37 Seg Neutrophils % 48.2 % (40.0-70.0) 12/13/21 07:37 Seg Neutrophils # 1.4 K/mm3 (1.8-7.7) L 12/13/21 07:37 Sodium 145 mmol/L (137-145) 12/13/21 07:37 Potassium 4.4 mmol/L (3.6-5.0) 12/13/21 07:37 Chloride 108.5 mmol/L (98-107) H 12/13/21 07:37 Carbon Dioxide 25 mmol/L (22-30) 12/13/21 07:37 Anion Gap 16 mmol/L 12/13/21 07:37 BUN 12 mg/dL (7-17) 12/13/21 07:37 Creatinine 0.8 mg/dL (0.6-1.2) 12/13/21 07:37 Estimated GFR > 60 ml/min 12/13/21 07:37 BUN/Creatinine Ratio 15 % 12/13/21 07:37 Glucose 77 mg/dL (65-100) 12/13/21 07:37 Hemoglobin A1c 5.2 % (4-6) 12/13/21 07:37 Calcium 8.6 mg/dL (8.4-10.2) 12/13/21 07:37 Total Bilirubin 0.70 mg/dL (0.1-1.2) 12/13/21 07:37 AST 21 units/L (5-40) 12/13/21 07:37 ALT 15 units/L (7-56) 12/13/21 07:37 Alkaline Phosphatase 88 units/L (35-129) 12/13/21 07:37 Total Protein 5.8 g/dL (6.3-8.2) L 12/13/21 07:37 Albumin 3.6 g/dL (3.9-5) L 12/13/21 07:37 Albumin/Globulin Ratio 1.6 % 12/13/21 07:37 Triglycerides 76 mg/dL (2-149) 12/13/21 07:37 Cholesterol 119 mg/dL (50-199) 12/13/21 07:37 LDL Cholesterol Direct 64 mg/dL (50-130) 12/13/21 07:37 HDL Cholesterol 39 mg/dL (40-59) L 12/13/21 07:37 Cholesterol/HDL Ratio 3.05 % 12/13/21 07:37 TSH 0.425 mlU/mL (0.270-4.200) 12/13/21 07:37 Core Measure Documentation - Palliative Care Palliative Care/ Comfort Measures: Not Applicable - Core Measures Any of the following diagnoses?: none Exam - Constitutional Vitals: Temp Pulse Resp BP Pulse Ox 95.9 F L 62 16 152/72 99 12/17/21 04:28 12/17/21 04:28 12/17/21 04:28 12/17/21 04:28 12/17/21 04:28 General appearance: Present: no acute distress - EENT Eyes: Present: EOM intact ENT: hearing intact, clear oral mucosa - Neck Neck: Present: normal ROM - Respiratory Respiratory effort: normal Plan Activity: advance as tolerated Weight Bearing Status: Weight Bear as Tolerated Care Plan Goals: Maintain good and stable mental health Plan of Treatment: The patient should be compliant with medications, not to use drugs, and not to drink alcohol. The patient understands that if suicidal ideas, homicidal ideas or any endangering feeling arise, the patient should seek assistance including, but not limited to crisis hotline, and emergency room. Assessment: Major Depressive Disorder Follow up with: PRIMARY CARE,MD [Primary Care Provider] - 7 Days Prescriptions: Melatonin [Melatonin 5MG TAB] 10 mg PO QHS PRN #60 tablet PRN Reason: Sleep Sertraline [Zoloft] 25 mg PO QDAY #30 tablet
[2021-12-17] MEDS: LISINOPRIL 20 MG TAB PO SCH (09:26)
[2021-12-17] MEDS: SERTRALINE 25 MG TAB PO SCH (09:26)
--- NOTE | 2021-12-17 14:29 | Progress Note ---
Assessment and Plan Assessment and plan: 66-year-old female patient was admitted to [facility] for suicidal ideation and consuming a sip of bleach and 3 to 4 unknown tablets with intention to harm herself as suicidal attempt Patient has history of hypertension dyslipidemia, medical consult was requested for medical management. Today patient is doing well denies any suicidal thoughts or ideation Very excited that she is going home; Assessment and plan: -- Dyslipidemia; -- Major depression -- Suicidal attempt; -- Bradycardia asymptomatic -- Leukopenia plan: Cont supportive care, No new complaints Psych cleared for discharge today Patient is medically stable for discharge Need to follow-up with primary care physician For her medical needs Plan of care reviewed with the patient and patient's nurse Thank you for this consultation History Interval history: I have seen and examined the patient in her room this morning Patient's chart and medications reviewed No new events reported by the nursing Patient is excited that she is going home today Has no new complaints Vital signs reviewed Hospitalist Physical - Constitutional Vitals: Temp Pulse Resp BP Pulse Ox 95.9 F L 62 16 152/72 99 12/17/21 04:28 12/17/21 09:26 12/17/21 04:28 12/17/21 09:26 12/17/21 04:28 General appearance: Present: no acute distress, well-nourished, obese - EENT Eyes: Present: PERRL, EOM intact - Neck Neck: Present: supple, normal ROM - Respiratory Respiratory effort: normal Respiratory: bilateral: diminished, negative: rales, rhonchi, wheezing - Cardiovascular Rhythm: regular Heart Sounds: Present: S1 & S2 - Extremities Extremities: no ischemia, No edema - Abdominal General gastrointestinal: soft, non-tender, non-distended, normal bowel sounds - Integumentary Integumentary: Present: clear, warm - Psychiatric Psychiatric: appropriate mood/affect, cooperative - Neurologic Neurologic: moves all extremities Results - Labs CBC & Chem 7: 12/13/21 07:37 12/13/21 07:37 Labs: Laboratory Last Values WBC 2.9 K/mm3 (4.5-11.0) L 12/13/21 07:37 RBC 3.63 M/mm3 (3.65-5.03) L 12/13/21 07:37 Hgb 11.0 gm/dl (10.1-14.3) 12/13/21 07:37 Hct 34.8 % (30.3-42.9) 12/13/21 07:37 MCV 96 fl (79-97) 12/13/21 07:37 MCH 30 pg (28-32) 12/13/21 07:37 MCHC 32 % (30-34) 12/13/21 07:37 RDW 14.7 % (13.2-15.2) 12/13/21 07:37 Plt Count 200 K/mm3 (140-440) 12/13/21 07:37 Lymph % (Auto) 40.4 % (13.4-35.0) H 12/13/21 07:37 [place] % (Auto) 8.7 % (0.0-7.3) H 12/13/21 07:37 Eos % (Auto) 1.1 % (0.0-4.3) 12/13/21 07:37 Baso % (Auto) 1.6 % (0.0-1.8) 12/13/21 07:37 Lymph # (Auto) 1.2 K/mm3 (1.2-5.4) 12/13/21 07:37 [place] # (Auto) 0.3 K/mm3 (0.0-0.8) 12/13/21 07:37 Eos # (Auto) 0.0 K/mm3 (0.0-0.4) 12/13/21 07:37 Baso # (Auto) 0.0 K/mm3 (0.0-0.1) 12/13/21 07:37 Seg Neutrophils % 48.2 % (40.0-70.0) 12/13/21 07:37 Seg Neutrophils # 1.4 K/mm3 (1.8-7.7) L 12/13/21 07:37 Sodium 145 mmol/L (137-145) 12/13/21 07:37 Potassium 4.4 mmol/L (3.6-5.0) 12/13/21 07:37 Chloride 108.5 mmol/L (98-107) H 12/13/21 07:37 Carbon Dioxide 25 mmol/L (22-30) 12/13/21 07:37 Anion Gap 16 mmol/L 12/13/21 07:37 BUN 12 mg/dL (7-17) 12/13/21 07:37 Creatinine 0.8 mg/dL (0.6-1.2) 12/13/21 07:37 Estimated GFR > 60 ml/min 12/13/21 07:37 BUN/Creatinine Ratio 15 % 12/13/21 07:37 Glucose 77 mg/dL (65-100) 12/13/21 07:37 Hemoglobin A1c 5.2 % (4-6) 12/13/21 07:37 Calcium 8.6 mg/dL (8.4-10.2) 12/13/21 07:37 Total Bilirubin 0.70 mg/dL (0.1-1.2) 12/13/21 07:37 AST 21 units/L (5-40) 12/13/21 07:37 ALT 15 units/L (7-56) 12/13/21 07:37 Alkaline Phosphatase 88 units/L (35-129) 12/13/21 07:37 Total Protein 5.8 g/dL (6.3-8.2) L 12/13/21 07:37 Albumin 3.6 g/dL (3.9-5) L 12/13/21 07:37 Albumin/Globulin Ratio 1.6 % 12/13/21 07:37 Triglycerides 76 mg/dL (2-149) 12/13/21 07:37 Cholesterol 119 mg/dL (50-199) 12/13/21 07:37 LDL Cholesterol Direct 64 mg/dL (50-130) 12/13/21 07:37 HDL Cholesterol 39 mg/dL (40-59) L 12/13/21 07:37 Cholesterol/HDL Ratio 3.05 % 12/13/21 07:37 TSH 0.425 mlU/mL (0.270-4.200) 12/13/21 07:37 Demarco/IV: Voiding Method Toilet
== END 2021-12-17 13:45 | disposition home or self-care (01) | DRG 885 ==
LOC: UNDOADMIN 18:15 → 3A 18:15 → 5A 12-13 00:40
PROVIDERS: ADMIT Psychiatry & Neurology Psychiatry; ATTEND Psychiatry & Neurology Psychiatry
DX: F33.9 Major depressive disorder, recurrent, unspecified (principal); E78.5 Hyperlipidemia, unspecified; E66.9 Obesity, unspecified; Z68.33 Body mass index [BMI] 33.0-33.9, adult; Z71.6 Tobacco abuse counseling; Z71.3 Dietary counseling and surveillance; D72.819 Decreased white blood cell count, unspecified; T14.91XA Suicide attempt, initial encounter; X83.8XXA Intentional self-harm by other specified means, initial encounter; Y93.89 Activity, other specified; Y92.89 Other specified places as the place of occurrence of the external cause; Y99.8 Other external cause status; R00.1 Bradycardia, unspecified; Z88.8 Allergy status to other drugs, medicaments and biological substances; Z79.899 Other long term (current) drug therapy; Z88.5 Allergy status to narcotic agent
CPT/HCPCS: 36415; 80053; 80061; 83036; 84443; 85025; G0378